=== PATIENT | female | born 1960 | race Two or more races ===

== ENCOUNTER 2023-05-29 10:08 | Outpatient (CLI) | payer OTHER | END 2023-05-29 10:11 | disposition home or self-care (01) | LOC: SONOGRAMA 10:08 | PROVIDERS: ATTEND Pathology Anatomic Pathology | DX: D34 Benign neoplasm of thyroid gland (principal); E07.89 Other specified disorders of thyroid; D44.0 Neoplasm of uncertain behavior of thyroid gland; E04.2 Nontoxic multinodular goiter ==

== ENCOUNTER 2023-08-28 05:56 | Day surgery (SDC) | payer OTHER ==
[2023-08-17 10:12] LABS: HEMATOCRIT 39.1 % (36.0-45.00); HEMOGLOBIN 13.7 g/dL (12.0-15.00); MEAN CELL VOLUME 86.6 fL (80.00-100.00); MEAN CORPUSCULAR HEMOGLOBIN 30.3 pg (27.00-32.0); PLATELET COUNT 227 K/uL (150-450); RED BLOOD COUNT 4.52 M/uL (4.00-6.00); RED CELL DISTRIBUTION WIDTH 13.1 % (11.5-14.5)
[2023-08-17 10:15] LABS: URINE APPEARANCE Clear; URINE BILIRRUBIN Negative (NEGATIVE); URINE BLOOD Negative; URINE COLOR Yellow; URINE GLUCOSE Negative (NEGATIVE); URINE LEUKOCYTE Small; URINE NITRATE Negative; URINE PROTEIN Negative (NEGATIVE); URINE UROBILINOGEN 0.2 E.U./dl
[2023-08-17 10:17] LABS: URINE BACTERIA 7.5 uL (0.0-1933); URINE EPITHELIAL CELLS 13.7 uL (0.0-38.8); URINE WBC 11.7 uL (0.0-23.2)
[2023-08-17 10:19] LABS: URINE RBC 1.4 uL (0.0-20.8)
[2023-08-17 10:36] LABS: INR 0.98; PROTHROMBIN TIME 10.3 SECONDS (9.0-11.5)
[2023-08-17 10:44] LABS: ALBUMIN 4.2 gm/dL (3.4-5.0); BILIRUBIN TOTAL 0.47 mg/dL (0.3-1.2); CALCIUM 9.4 mg/dL (8.5-10.1); CREATININE SERUM 0.95 mg/dL (0.55-1.02); GFR 59.22; GLOBULINA 4.1 G/DL (2.4-3.5); POTASSIUM 3.98 mEq/L (3.5-5.1); TOTAL PROTEIN 8.3 gm/dL (6.4-8.2)
[~2023-08-28] VITALS: Ht 152.4 cm; Wt 68.0 kg
[~2023-08-28 05:56] MED LIST: CITRACAL + D M1 EACH PO; FAMOTIDINE40 MG PO; PREVACID30 M1 PO; ROSUVASTATIN CA20 MG PO; SYNTHROID50 MCG PO
[2023-08-28] MEDS ORDERED: DEXAMETHASONE SODIUM PHOSP/PF 10 MG/ML VIAL IV ONE (10:30)
[2023-08-28] MEDS ORDERED: ONDANSETRON HCL 2 MG/ML VIAL IV PRN (12:15)
[2023-08-28] MEDS ORDERED: ENALAPRILAT DIHYDRATE 1.25 MG/ML VIAL IV PRN (12:15)
[2023-08-28] MEDS ORDERED: VITAMIN D31250 MCG (13:54)
[2023-08-28] MEDS ORDERED: TRAMADOL HCL 50 MG TABLET PO SCH (14:00)
[2023-08-28 16:37] LABS: ALBUMIN 4.2 gm/dL (3.4-5.0); CALCIUM 8.6 mg/dL (8.5-10.1); CREATININE SERUM 0.71 mg/dL (0.55-1.02); GFR 82.88; PHOSPHOROUS 3.8 mg/dL (2.5-4.9); POTASSIUM 3.16 mEq/L (3.5-5.1)
[2023-08-28] MEDS ORDERED: CYCLOBENZAPRINE HCL 5 MG TABLET PO SCH (17:00)
[2023-08-28] MEDS ORDERED: ACETAMINOPHEN 500 MG GEL..CAP PO SCH (17:00)
[2023-08-28] MEDS ORDERED: POTASSIUM CHLORIDE IN WATER 100 ML IV NR (17:30)
[2023-08-28] MEDS ORDERED: Calcium Carbonate 1 TAB TABLET PO SCH (21:00)
[2023-08-28] MEDS ORDERED: PANTOPRAZOLE SODIUM 40 MG/VIAL VIAL IV PUSH SCH (21:00)
[2023-08-29 08:29] LABS: CALCIUM 8.3 mg/dL (8.5-10.1); CREATININE SERUM 0.7 mg/dL (0.55-1.02); GFR 84.24; POTASSIUM 4.02 mEq/L (3.5-5.1)
[2023-08-29] MEDS ORDERED: FAMOtidine 20 MG TABLET PO SCH (09:00)
[2023-08-29] MEDS ORDERED: LEVOTHYROXINE SODIUM 100 MCG TABLET PO SCH (09:00)
[2023-08-29] MEDS ORDERED: CALCITRIOL 0.5 MCG CAPSULE PO NR (12:15)
== END 2023-08-29 15:05 | disposition home or self-care (01) ==
LOC: CIR.AMB 05:56 → EDSTATUS 08:15 → SURH 08:15 → CIR.AMB 08:15 → O/R 13:41 → CIR.AMB 13:41 → SURH 14:43 → O/R 14:43 → SURH 08-29 15:05 → CIR.AMB 08-29 15:05
PROVIDERS: ATTEND Surgery
DX: C73 Malignant neoplasm of thyroid gland (principal); Z88.5 Allergy status to narcotic agent; Z88.8 Allergy status to other drugs, medicaments and biological substances